=== PATIENT | female | born 1980 ===

== ENCOUNTER 2020-01-07 07:32 | Emergency (ER) | payer MEDICAID ==
[~2020-01-07] VITALS: Ht 162.6 cm; Wt 54.5 kg
[2020-01-07 07:40] VITALS: BP 128/91
== END 2020-01-07 08:56 | disposition left against medical advice (07) ==
LOC: ER 07:33
DX: Z00.00 Encounter for general adult medical examination without abnormal findings (principal); Z53.21 Procedure and treatment not carried out due to patient leaving prior to being seen by health care provider

== ENCOUNTER 2021-08-31 18:27 | Emergency (ER) | payer MEDICARE, MEDICAID | END 2021-08-31 20:30 | disposition left against medical advice (07) | LOC: ER 18:27 | DX: Z53.21 Procedure and treatment not carried out due to patient leaving prior to being seen by health care provider (principal) ==

== ENCOUNTER 2025-05-26 02:45 | Emergency (ER) | payer MEDICARE, MEDICAID ==
[~2025-05-26] VITALS: Ht 162.6 cm; Wt 51.8 kg
[2025-05-26 02:48] VITALS: TEMP 97.4
[2025-05-26 04:25] VITALS: BP 128/94; PULSE 78; RESP 16; O2SAT 99
== END 2025-05-26 06:11 | disposition left against medical advice (07) ==
LOC: ER 02:46
DX: M25.512 Pain in left shoulder (principal); Z88.0 Allergy status to penicillin; Z53.21 Procedure and treatment not carried out due to patient leaving prior to being seen by health care provider
CPT/HCPCS: 99281